=== PATIENT | female | born 1990 | race Asian ===

== ENCOUNTER 2023-11-16 17:40 | Inpatient (IN) | payer MEDICAID ==
[~2023-11-16] VITALS: Ht 157.5 cm; Wt 68.0 kg
[2023-11-16 18:00] VITALS: BP 113/60; PULSE 78; RESP 18; TEMP 98.1; O2SAT 96
[2023-11-16] MEDS ORDERED: MECLIZINE HCL 25 MG TABLET PO PRN (18:45)
[2023-11-16] MEDS ORDERED: HYDROmorphone HCL 2 MG TABLET PO PRN (18:45)
[2023-11-16] MEDS: INFLUENZA VIRUS VACCINE QVS 2023-24 (6MO+)/PF 60 MCG/0.5 ML SYRINGE IM. ONE (19:17)
[2023-11-16] MEDS ORDERED: BISACODYL 10 MG RECTAL RECTAL SUPPOSITORY PR PRN (20:00)
[2023-11-16] MEDS: ENOXAPARIN SODIUM 40 MG/0.4 ML PF SYRINGE SQ SCH (20:57)
[2023-11-16] MEDS: ETHYL ALCOHOL 62% ANTISEPTIC NASAL SANITIZER 0.6 ML AMPUL NASAL SCH (20:57)
[2023-11-16] MEDS: SENNOSIDES 8.6 MG TABLET PO SCH (20:58)
[2023-11-16] MEDS: PEG 400/HYPROMELLOSE/GLYCERIN 15 ML OPHTHALMIC SOLUTION OU SCH (20:58)
[2023-11-16] MEDS: GABAPENTIN 400 MG CAPSULE PO SCH (20:59)
[2023-11-16] MEDS: DOCUSATE SODIUM 100 MG CAPSULE PO SCH (20:59)
[2023-11-16] MEDS: -LIDODERM PATCH NOTE- MISC SCH (21:00)
[2023-11-16] MEDS: ERYTHROMYCIN 0.5% 3.5 GM TUBE OPHTHALMIC OINTMENT OD SCH (21:06)
[2023-11-16 23:25] VITALS: O2SAT 99
[2023-11-16 23:26] VITALS: BP 119/73; PULSE 85; RESP 18; TEMP 97.6; O2SAT 99
[2023-11-17] MEDS: ACETAMINOPHEN 325 MG TABLET PO SCH
[2023-11-17] MEDS: POLYETHYLENE GLYCOL 3350 17 GM PACKET PO SCH (07:47)
[2023-11-17 07:59] LABS: BASOPHILS % (AUTO) 0.6 % (0.0-2.0); HEMATOCRIT 35.6 % (36-46); LYMPHOCYTES % (AUTO) 19.4 % (22.0-44.0); MEAN CORPUSCULAR HEMOGLOBIN 30.9 pg (26.0-34.0); MEAN CORPUSCULAR HGB CONC 33.7 G/dL (31.0-37.0); MEAN CORPUSCULAR VOLUME 92 fL (80-100); MONOCYTES # (AUTO) 0.9 K/uL (0.1-1.0); MONOCYTES % (AUTO) 8.7 % (2.0-9.0); NEUTROPHILS # (AUTO) 7.2 K/uL (1.8-7.7); NEUTROPHILS % (AUTO) 69.3 % (40.0-70.0); PLATELET COUNT (AUTO) 542 K/uL (150-450); RED BLOOD CELL COUNT(AUTO) 3.88 MIL/uL (4.00-5.20); RED CELL DISTRIBUTION WIDTH 12.9 % (11.5-14.5); WHITE BLOOD COUNT (AUTO) 10.3 K/uL (4.5-11.0)
[2023-11-17 08:00] VITALS: BP 129/71; PULSE 72; RESP 18; TEMP 98.1; O2SAT 98
[2023-11-17] MEDS: LIDOCAINE 5% TRANSDERMAL PATCH TD SCH (08:16)
[2023-11-17 08:24] LABS: ALANINE AMINOTRANSFERASE 79 U/L (12-78); ALBUMIN 3.5 g/dL (3.4-5.0); ALKALINE PHOSPHATASE 125 U/L (46-116); ANION GAP 8 mmol/L (8-16); ASPARTATE AMINOTRANSFERASE 41 U/L (15-37); BILIRUBIN,TOTAL 0.4 mg/dL (0.1-1.0); CALCIUM, TOTAL 9.7 mg/dL (8.8-10.5); CARBON DIOXIDE 29 mmol/L (22-29); CHLORIDE 99 mmol/L (98-107); CREATININE 0.56 mg/dL (0.60-1.30); GLOMERULAR FILTR. RATE CALC > 60 mL/min (>60); GLUCOSE,RANDOM 100 mg/dL (70-110); POTASSIUM 4.1 mmol/L (3.5-5.1); SODIUM SERUM 136 mmol/L (136-145); TOTAL PROTEIN, SERUM 7.9 g/dL (6.4-8.2); UREA NITROGEN, BLOOD 12 mg/dL (7-18)
[2023-11-17 09:49] VITALS: O2SAT 98
[2023-11-17] MEDS: SIMETHICONE 80 MG CHEWABLE TABLET CHEW PRN (16:20)
[2023-11-17 20:00] VITALS: BP 121/64; PULSE 76; RESP 18; TEMP 98.2; O2SAT 97
[2023-11-17] MEDS: ENOXAPARIN SODIUM 40 MG/0.4 ML PF SYRINGE SQ SCH (20:30)
[2023-11-18 10:16] VITALS: BP 112/69; PULSE 66; RESP 18; TEMP 98.1; O2SAT 98
[2023-11-18 10:18] VITALS: O2SAT 98
[2023-11-18] MEDS: SIMETHICONE 80 MG CHEWABLE TABLET CHEW PRN (12:19)
[2023-11-18 20:00] VITALS: BP 104/70; PULSE 76; RESP 19; TEMP 97.9; O2SAT 98
[2023-11-18] MEDS: CALCIUM CARBONATE 500 MG CHEWABLE TABLET CHEW PRN (20:30)
[2023-11-18 21:10] VITALS: O2SAT 98
[2023-11-19 08:02] VITALS: BP 125/68; PULSE 91; RESP 18; TEMP 98; O2SAT 100
[2023-11-19] MEDS: SCOPOLAMINE HYDROBROMIDE 1 MG/72 HOUR PATCH TD SCH (08:33)
[2023-11-19] MEDS: GABAPENTIN 100 MG CAPSULE PO SCH (16:28)
[2023-11-19 20:22] VITALS: BP 116/69; PULSE 83; RESP 19; TEMP 97.7; O2SAT 98
[2023-11-19 21:12] VITALS: O2SAT 98
[2023-11-20 08:10] VITALS: BP 114/72; PULSE 72; RESP 18; TEMP 97.6; O2SAT 97
[2023-11-20 20:15] VITALS: BP 114/74; PULSE 88; RESP 18; TEMP 97.9; O2SAT 96
[2023-11-20 22:00] VITALS: O2SAT 96
[2023-11-20 23:41] VITALS: BP 122/73; PULSE 82; RESP 18; TEMP 98; O2SAT 97
[2023-11-21 08:00] VITALS: BP 127/76; PULSE 80; RESP 18; TEMP 98.6; O2SAT 100
[2023-11-21] MEDS: BusPIRone HCL 5 MG TABLET PO SCH (12:16)
[2023-11-21 20:26] VITALS: BP 101/66; PULSE 72; RESP 18; TEMP 98; O2SAT 97
[2023-11-21 20:27] VITALS: O2SAT 97
[2023-11-22] MEDS ORDERED: ACET-3385 PO (02:24)
[2023-11-22] MEDS ORDERED: HYPR15DR23 OU (02:30)
[2023-11-22] MEDS ORDERED: ERYT3.5O8 OU (02:36)
[2023-11-22] MEDS ORDERED: BUSP5TAB20 PO ×2 (02:37→12:04)
[2023-11-22] MEDS ORDERED: LIDO700A15 TP (02:39)
[2023-11-22 06:17] LABS: ALANINE AMINOTRANSFERASE 66 U/L (12-78); ALBUMIN 3.6 g/dL (3.4-5.0); ALKALINE PHOSPHATASE 147 U/L (46-116); ANION GAP 9 mmol/L (8-16); ASPARTATE AMINOTRANSFERASE 30 U/L (15-37); BILIRUBIN,TOTAL 0.3 mg/dL (0.1-1.0); CALCIUM, TOTAL 9.9 mg/dL (8.8-10.5); CARBON DIOXIDE 28 mmol/L (22-29); CHLORIDE 99 mmol/L (98-107); CREATININE 0.63 mg/dL (0.60-1.30); GLOMERULAR FILTR. RATE CALC > 60 mL/min (>60); GLUCOSE,RANDOM 101 mg/dL (70-110); POTASSIUM 4.3 mmol/L (3.5-5.1); SODIUM SERUM 136 mmol/L (136-145); TOTAL PROTEIN, SERUM 8.3 g/dL (6.4-8.2); UREA NITROGEN, BLOOD 9 mg/dL (7-18)
[2023-11-22 08:30] VITALS: BP 121/88; PULSE 87; RESP 18; TEMP 98.6; O2SAT 98
[2023-11-22 09:14] VITALS: O2SAT 98
[2023-11-22] MEDS ORDERED: LIDO700A30 TD (12:04)
[2023-11-22] MEDS ORDERED: ACET325T51 PO (12:04)
[2023-11-22] MEDS ORDERED: PEG15DRO14 OU (12:04)
[2023-11-22] MEDS ORDERED: POLY17PO11 PO (12:04)
[2023-11-22 20:05] VITALS: BP 119/59; PULSE 85; RESP 18; TEMP 97.7; O2SAT 97
[2023-11-22 20:07] VITALS: O2SAT 97
[2023-11-23 08:34] VITALS: BP 118/80; PULSE 88; RESP 19; TEMP 98.1; O2SAT 98
[2023-11-23 08:35] VITALS: O2SAT 98
== END 2023-11-23 11:30 | disposition home or self-care (01) | DRG 930 ==
LOC: 2WR 17:40
PROVIDERS: ADMIT Physical Medicine & Rehabilitation; ATTEND Physical Medicine & Rehabilitation
DX: S32.022A Unstable burst fracture of second lumbar vertebra, initial encounter for closed fracture (principal); S22.43XA Multiple fractures of ribs, bilateral, initial encounter for closed fracture; S36.893A Laceration of other intra-abdominal organs, initial encounter; F07.81 Postconcussional syndrome; S02.85XA Fracture of orbit, unspecified, initial encounter for closed fracture; K59.00 Constipation, unspecified; R52 Pain, unspecified; R26.9 Unspecified abnormalities of gait and mobility; E04.1 Nontoxic single thyroid nodule; D75.839 Thrombocytosis, unspecified; F41.9 Anxiety disorder, unspecified; S01.111A Laceration without foreign body of right eyelid and periocular area, initial encounter; F17.200 Nicotine dependence, unspecified, uncomplicated; R09.81 Nasal congestion; R74.01 Elevation of levels of liver transaminase levels; R42 Dizziness and giddiness; G62.9 Polyneuropathy, unspecified; Z88.6 Allergy status to analgesic agent; Y93.89 Activity, other specified; Y92.89 Other specified places as the place of occurrence of the external cause; Y99.8 Other external cause status; Z98.1 Arthrodesis status
CPT/HCPCS: 80053; 85025; 87081; 92523; 93970; 97110; 97116; 97162; 97167; 97530; 97535; 99366; J1650